=== PATIENT | female | born 1960 | race Caucasian/White ===

== ENCOUNTER → 2023-01-17 14:37 | Outpatient (CLI) | payer OTHER, SELFPAY ==
--- NOTE | ~2023-01-17 | MR_ITS ---
EXAMINATION: MR knee RT wo con DATE: 01/17/2023 15:31 INDICATION: Acute onset right knee pain post fall 2 1/2 weeks prior. TECHNIQUE: Magnetic resonance imaging (MRI) of the right knee was performed without intravenous contr ast. Sequences included coronal PD-weighted FSE, coronal PD-weighted FS FSE, sagittal T2-weighted FS E, sagittal PD-weighted FS FSE and axial PD weighted fat saturated FSE. COMPARISON: None. FINDINGS: Medial compartment: Longitudinal horizontal tear extending to the inferior articular surface of the posterior body and po sterior horn of the medial meniscus. There is a deep chondral fissuring without degenerative subchond ral changes at the medial aspect of the anterior weightbearing medial femoral condyle. Lateral compartment: Small radial tear along the inner most free edge of the body of the lateral meniscus. Partial-thickne ss chondral ulceration and deeper fissuring with chondral surface irregularity and less than 50% cart ilage thickness loss of the cartilage at the central and posterior aspect of the lateral tibial plate au. Small chondral fissure at the central weightbearing lateral femoral condyle at the level of the p osterior horn of the lateral meniscus. Patellofemoral compartment: Deep chondral ulceration with tiny focus of underlying edema-like marrow signal change at the inferio r half of the lateral patellar facet. Deep chondral fissure patellar apical ridge and at the medial f acet, the latter with underlying small central subchondral osteophyte. Ligaments and tendons: Anterior and posterior cruciate ligaments are normal. The medial collateral ligament and fibular emily ateral ligament complex are normal. Mild tendinopathy of the distal quadriceps and distal patellar te ndons. The visualized medial and lateral hamstring tendons as well as the iliotibial band are normal. Fluid: Physiologic amount of fluid in the joint space. No loose osteochondral bodies identified. Osseous/other: Comminuted intra-articular fracture of the proximal tibia with irregular linear mild fluid signal ext ending along the fracture planes. There is a fracture plane with Y-shaped configuration on the chapa l imaging which extends AP with fracture planes extending across the cortices along the medial and la teral sides of the intercondylar eminence. The distal fracture plane appears incomplete in the metaph yseal region along much of its length. There is a coronally oriented fracture plane also appearing li robles distally which extends across the proximal cortex anterior to the intercondylar eminence and acr oss the cortex anterior to the articular cortex of the lateral tibial plateau. No fracture or patholo gic marrow replacing process. IMPRESSION: 1. Nondisplaced comminuted intra-articular fracture of the proximal tibia with fracture lines extendi ng across the cortices the medial lateral sides of the intercondylar eminence but which appears large ly incomplete distally. 2. Medial and lateral meniscal tears. 3. 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 4. Mild distal quadriceps and patellar tendinopathy. Reviewed, dictated and finalized at location A. IMPRESSION: 1. Nondisplaced comminuted intra-articular fracture of the proximal tibia with fracture lines extending across the cortices the medial lateral sides of the in tercondylar eminence but which appears largely incomplete distally. 2. Medial and lateral meniscal tears. 3. 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 4. Mild distal quadriceps and patellar tendinopathy.
== END ==
PROVIDERS: PCP Family Medicine; Visit Provider Orthopaedic Surgery
DX: S82.191A Other fracture of upper end of right tibia, initial encounter for closed fracture (principal); S83.281A Other tear of lateral meniscus, current injury, right knee, initial encounter; S83.241A Other tear of medial meniscus, current injury, right knee, initial encounter; M17.11 Unilateral primary osteoarthritis, right knee; M76.892 Other specified enthesopathies of left lower limb, excluding foot; X58.XXXA Exposure to other specified factors, initial encounter
CPT/HCPCS: 73721

== ENCOUNTER 2024-10-29 08:43 | Outpatient (CLI) | payer OTHER, SELFPAY ==
--- NOTE | ~2024-10-29 | MR_ITS ---
EXAMINATION: MR shoulder RT wo con DATE: 10/29/2024 09:22 INDICATION: Progressive right shoulder pain and limited range of motion post pulling injury several m onths prior TECHNIQUE: Magnetic resonance imaging (MRI) of the right shoulder was performed without intravenous c ontrast. Sequences included axial PD-weighted FS FSE, coronal oblique PD-weighted FS FSE, coronal obl ique T2-weighted FS FSE, sagittal PD-weighted FS FSE, and sagittal T1-weighted SE. COMPARISON: None. FINDINGS: Coracoacromial arch: The acromion undersurface is curved in morphology (type II). There is fluid extending across the plan e of a meso-acromial os acromiale. The coracoacromial ligament is normal. Moderate acromioclavicular osteoarthritis with minimal subarticular edema-like signal change at both sides of the joint space. Rotator cuff: Moderate supraspinatus and mild infraspinatus tendinopathy without discrete tear. The teres minor ten don is normal. Mild subscapular tendinopathy also without discrete tear. Normal rotator cuff muscle b ulk and signal. Biceps tendon, glenoid labrum and glenohumeral cartilage: Long head of the biceps tendon is normal. Amorphous mild increased signal consistent with degenerativ e tearing at the superior glenoid labrum. More well-defined. The anteroinferior labrum. Extensive par tial thickness cartilage loss at the glenoid with no focal deep chondral ulceration with mild underly ing subarticular edema-like signal change at the anteroinferior glenoid. Additional deep chondral ulc eration without degenerative subchondral changes at the superomedial and superior aspect of the humer al head. Fluid: Small glenohumeral joint effusion with proportional extension of fluid into the long head biceps tend on sheath. There is moderate synovitis at the axillary recess. No intra-articular loose bodies identi fied however there does appear to be a 1 cm filling defect likely representing a loose body within th e deep subscapular recess. No abnormal increased fluid in the subacromial/subdeltoid bursa to suggest bursitis. Bones: No fracture or pathologic marrow replacing process. IMPRESSION: 1. Mild glenohumeral osteoarthritis with regions of moderate grade tumoral chondromalacia and high-gr yvonne chondromalacia the anteroinferior glenoid. 2. Degenerative tearing at the superior and anteroinferior glenoid labrum. 3. Mild to moderate rotator cuff tendinopathy without discrete tear. 4. Likely reactive moderate sized glenoid humeral joint effusion with some associated synovitis. 5. Moderate acromioclavicular osteoarthritis. 6. Fluid extending along the synchondrosis of a meso acromial os acromiale. Reviewed, dictated and finalized at location B. REPORT DEVELOPER IMPRESSION: 1. Mild glenohumeral osteoarthritis with regions of moderate grade tumoral shayy dromalacia and high-grade chondromalacia the anteroinferior glenoid. 2. Degenerative tearing at the superior and anteroinferior glenoid labrum. 3. Mild to moderate rotator cuff tendinopathy without discrete tear. 4. Likely reactive moderate sized glenoid humeral joint effusion with some asso ciated synovitis. 5. Moderate acromioclavicular osteoarthritis. 6. Fluid extending along the synchondrosis of a meso acromial os acromiale.
== END 2024-10-29 08:44 | disposition home or self-care (01) ==
PROVIDERS: PCP Orthopaedic Surgery; Visit Provider Orthopaedic Surgery
DX: S43.431A Superior glenoid labrum lesion of right shoulder, initial encounter (principal); X58.XXXA Exposure to other specified factors, initial encounter; M25.811 Other specified joint disorders, right shoulder; M25.411 Effusion, right shoulder; M65.811 Other synovitis and tenosynovitis, right shoulder; M19.011 Primary osteoarthritis, right shoulder; M89.8X1 Other specified disorders of bone, shoulder
CPT/HCPCS: 73221